=== PATIENT | female | born 1980 | race Caucasian/White ===

== ENCOUNTER 2019-07-22 19:07 | Inpatient (IN) ==
[2019-07-22] MEDS ORDERED: REGLAN PO PRN (21:06)
[2019-07-22] MEDS ORDERED: ZOFRAN IV PRN (21:06)
[2019-07-22] MEDS ORDERED: PEPCID PO PRN (21:06)
[2019-07-22] MEDS ORDERED: BRETHINE SUBQ PRN (21:06)
[2019-07-22] MEDS ORDERED: STADOL IV PRN ×3 (21:06)
[2019-07-22] MEDS ORDERED: PEPCID IV PRN (21:06)
[2019-07-22] MEDS ORDERED: KEFZOL 1 GM/D5W 1 GM/50 ML IVPB IV PRN (21:06)
[2019-07-22] MEDS ORDERED: SODIUM CHLORIDE 0.9% INJ SCH (21:30)
[2019-07-22] MEDS ORDERED: SODIUM CHLORIDE 0.9% INJ PRN (21:30)
[2019-07-22] MEDS: LR 1,000 ML IV ONE (21:45)
[2019-07-22] MEDS ORDERED: CYTOTEC VAG ONE (22:00)
[2019-07-22 22:46] LABS: BASO# 0.03 X1000 (0.0-0.2); BASO% 0.2 % (0.0-0.8); EOS# 0.22 X1000 (0.0-0.7); EOS% 1.7 % (0.0-10.0); HEMATOCRIT 34.5 % (37.0-47.0); HEMOGLOBIN 11.1 g/dL (12.0-16.0); IMM GRAN# 0.16 X1000 (0.0-0.04); IMM GRAN% 1.3 % (0.0-0.5); LYMPH# 2.61 X1000 (1.2-3.4); LYMPH% 20.6 % (20.5-51.1); MCH 25.7 PG (27-31); MCHC 32.2 g/dL (33-37); MCV 79.9 FL (81-99); MONO# 1.22 X1000 (0.11-0.59); MONO% 9.6 % (1.7-9.3); MPV 11.3 FL (7.4-10.4); NEUT# 8.46 X1000 (1.4-6.5); NEUT% 66.6 % (42.2-75.2); PLT 236 X1000 (130-400); RBC 4.32 XMIL (4.2-5.4); RDW 13.3 % (11.5-14.5)
[2019-07-22] MEDS: MUCINEX PO SCH (22:49)
[2019-07-22 23:14] LABS: URINE SOURCE VOIDED
[2019-07-22 23:22] LABS: BILIRUBIN URINE NEGATIVE (NEGATIVE); BLOOD URINE NEGATIVE (NEGATIVE); COLOR YELLOW; GLUCOSE URINE NEGATIVE (NEGATIVE); KETONE URINE NEGATIVE (NEGATIVE); LEUKOCYTES URINE NEGATIVE (NEGATIVE); NITRITE URINE NEGATIVE (NEGATIVE); PROTEIN URINE 50 mg/dL (NEGATIVE); SP GRAVITY URINE 1.019; TURBIDITY URINE HAZY (CLEAR); UROBILINOGEN URINE NORMAL (NORMAL)
[2019-07-22 23:31] LABS: UR AMPHETAMINES QUAL NONE DETECTED (NONE DETECT); UR BARBITUATES QUAL NONE DETECTED (NONE DETECT); UR BENZODIAZEPIN QUAL NONE DETECTED (NONE DETECT); UR CANNABINOIDS QUAL NONE DETECTED (NONE DETECT); UR COCAINE QUAL NONE DETECTED (NONE DETECT); UR METHADONE QUAL NONE DETECTED (NONE DETECT); UR OPIATES QUAL NONE DETECTED (NONE DETECT); UR OXYCODONE QUAL NONE DETECTED (NONE DETECT); UR PCP QUAL NONE DETECTED (NONE DETECT)
[2019-07-23] MEDS: CYTOTEC VAG SCH ×5 (02:36→18:00)
[2019-07-23] MEDS: AMBIEN PO PRN ×2 (02:39→21:27)
--- NOTE | 2019-07-23 06:08 | HISTORY AND PHYSICAL ---
ESTIMATED GESTATIONAL AGE: 37+ 1. HISTORY: This patient is a 39-year-old 1, para 0, at 37+ 1 week who presented for Cytotec ripening/induction. The patient's history is remarkable for asthma, chronic hypertension, and depression. This is an in vitro . She is also Rh negative and received RhoGAM during the at 28 weeks. Her labs were unremarkable. She is GBS negative. FAMILY HISTORY: Remarkable for grandmother with breast cancer. PAST SURGICAL HISTORY: Remarkable for wisdom teeth. ALLERGIES: She had no known drug allergies. MEDICATIONS: The patient is on asthma medications, and also takes Procardia XL 30 for her chronic hypertension. REVIEW OF SYSTEMS: Constitutional: Negative. Respiratory: Negative. Cardiovascular: Negative. GI: Negative. Pelvic: Her pelvic exam in the office was as per patient, closed and thick. PHYSICAL EXAMINATION: VITAL SIGNS: Stable. GENERAL: She was in no distress. RESPIRATORY: Nonlabored respirations. CARDIOVASCULAR: Within normal limits. ABDOMEN: Gravid. Within normal limits. Approximately 7-1/2 pounds height. PELVIC: Exam was deferred. NEUROLOGIC: She was cooperative. Appropriate mood and affect with normal judgment. She was alert and oriented x3. ASSESSMENT: Term gestation at 37+ 1 week with chronic hypertension for Cytotec ripening/induction. PLAN: Reviewed with the patient. She verbalized understanding, and all questions were answered. [facility]
[2019-07-23] MEDS ORDERED: PITOCIN 30 UNITS/NS 30 UNIT/500 ML IV.SOLN IV SCH (07:00)
[2019-07-23] MEDS ORDERED: XYLOCAINE-MPF 1% INJ PRN (07:17)
[2019-07-23] MEDS ORDERED: MINERAL OIL TOP PRN (07:17)
--- NOTE | 2019-07-23 07:31 | HISTORY AND PHYSICAL ---
HISTORY OF PRESENT ILLNESS: Mrs. Theodore is a 39-year-old G1, P0 at 37 weeks and 1 day based on 1st trimester ultrasound who presents to Labor and Delivery for scheduled induction of labor per Maternal Medicine recommendation. The patient was seen and evaluated at Maternal Medicine office today where pressures were elevated, and positive +2 protein noted in the urine. The patient has a history of chronic hypertension and induction of labor was recommended for chronic hypertension with superimposed preeclampsia without severe features. The patient reports good movement. Denies contractions, leakage of fluid, or vaginal bleeding. Patient also denies headache, visual changes, or epigastric pain. ALLERGIES: No known drug allergies. MEDICATIONS: Albuterol low-dose aspirin, budesonide-formoterol, nifedipine extended release 60 mg, Pepcid 20 mg, and vitamins. PAST MEDICAL HISTORY: Asthma, depression, and hypertension. PAST SURGICAL HISTORY: [place] teeth extraction. OBSTETRICAL HISTORY: G1, P0. Current is via in vitro fertilization. INTAKE CLINICIAN HISTORY: Denies STD exposure. SOCIAL HISTORY: Denies tobacco, alcohol, or drug use. FAMILY HISTORY: Noncontributory. PHYSICAL EXAMINATION: VITAL SIGNS: Temperature 98 degrees Fahrenheit, pulse rate 93, respiration rate 20, blood pressure 141/86, and O2 saturation is 100% on room air. Weight 214 pounds. Height 5 feet 2 inches tall. Body mass index 39.1 kg/m2. GENERAL: No acute distress. Alert, awake and oriented x3. CARDIOVASCULAR: Regular rate and rhythm. Positive S1, S2. RESPIRATORY: Clear to auscultation bilaterally. Negative rhonchi, rales, or wheezing. ABDOMEN: Gravid. Nontender to palpation. Soft. EXTREMITIES: +2 edema. Negative calf tenderness. Electronic monitoring category 1 tracing. LABORATORY: Blood type AB negative. Hepatitis B surface antigen nonreactive. RPR nonreactive. HIV antibody screen nonreactive. Drug screen negative. Hepatitis C antibody nonreactive. CURRENT LABORATORY: WBC's 12.7, hemoglobin 11.1, hematocrit 34.5, and platelets 236,000. RPR nonreactive. ASSESSMENT: Mrs. Theodore is a 39-year-old, G1, P0, at 37 weeks and 1 day who presents for scheduled induction of labor secondary to chronic hypertension with superimposed preeclampsia without severe features. PLAN: 1. Admit to Labor and Delivery. 2. Obtain routine labor labs with PIH labs. 3. Plan for induction with Cytotec 25 mcg per vagina q.4 hours. 4. GBS negative, prophylactic antibiotic not indicated. 5. Continuous electronic monitoring. 6. Patient counseled on risks, benefits, and alternatives to procedure. Risks, not limited to infection, bleeding, vaginal laceration, delivery dystocia, emergent use of kiwi vacuum for delivery, and emergent delivery. The patient understands risks, and agrees to said procedure. 7. Estimated weight 7.5 pounds. 8. Anticipate vaginal delivery. [facility]ac[facility]
[2019-07-23 08:14] LABS: BASO# 0.06 X1000 (0.0-0.2); BASO% 0.5 % (0.0-0.8); EOS# 0.32 X1000 (0.0-0.7); EOS% 2.8 % (0.0-10.0); HEMATOCRIT 31.3 % (37.0-47.0); IMM GRAN# 0.09 X1000 (0.0-0.04); IMM GRAN% 0.8 % (0.0-0.5); LYMPH# 2.69 X1000 (1.2-3.4); LYMPH% 23.6 % (20.5-51.1); MCHC 31.9 g/dL (33-37); MCV 81.3 FL (81-99); MONO# 1.13 X1000 (0.11-0.59); MONO% 9.9 % (1.7-9.3); MPV 11.1 FL (7.4-10.4); NEUT# 7.11 X1000 (1.4-6.5); NEUT% 62.4 % (42.2-75.2); PLT 216 X1000 (130-400); RBC 3.85 XMIL (4.2-5.4); RDW 13.3 % (11.5-14.5)
[2019-07-23] MEDS: ADALAT CC PO SCH (08:20)
[2019-07-23] MEDS ORDERED: PROCARDIA ER PO SCH (09:00)
[2019-07-23 09:10] LABS: AGAP 16; ALB/GLOB RATIO 1.1; ALKALINE PHOSPHATASE 162 U/L (32-104); BUN 7 mg/dL (8-22); CALCIUM 8.4 mg/dL (8.8-10.2); CHLORIDE 103 mmol/L (98-107); COSMO 272; CREATININE 0.6 mg/dL (0.5-0.9); ESTIMATED GFR > 60; GLUCOSE 74 mg/dL (70-104); GOT 34 U/L (10-30); GPT 44 U/L (10-36); POTASSIUM 3.8 mmol/L (3.5-5.1); SODIUM 138 mmol/L (136-145); TCO2 19 mmol/L (25-35); TOTAL BILIRUBIN 0.43 mg/dL (0.20-1.00); TOTAL PROTEIN 5.8 g/dL (6.3-8.3); URIC ACID 5.6 mg/dL (2.4-5.7)
[2019-07-23] MEDS ORDERED: MAGNESIUM SULFATE 4 GM/S.W.I. 4 GM/100 ML IVPB IV ONE (10:11)
[2019-07-23] MEDS ORDERED: LABETALOL IV ONE (10:13)
--- NOTE | 2019-07-23 10:25 | HISTORY AND PHYSICAL ---
HISTORY OF PRESENT ILLNESS: This patient is a 39-year-old, 1, para 0, who presents for Cytotec induction at 37 plus 1 week. She has chronic hypertension, asthma, depression, and this was an in vitro . She is Rh negative and received RhoGAM during the at 28 weeks. PAST SURGICAL HISTORY: Remarkable for wisdom teeth. FAMILY HISTORY: She had a grandmother with breast cancer. ALLERGIES: She had no known drug allergies. MEDICATIONS: She is on asthma medications as well as Procardia XL 30 for her blood pressure. LABORATORY DATA: Her GBS was negative. Her labs were also unremarkable. Review of systems: negative PHYSICAL EXAMINATION: VITAL SIGNS: The patient was admitted and her vital signs were stable. Her blood pressure ranged from 140s-130s/60s-80s. WDWN WF alert oriented times 3 CARDIOVASCULAR: Examination was negative. RESPIRATORY: Respiratory effort was normal. ABDOMEN: Benign with an estimated weight of approximately 7 pounds. PELVIC: Examination was deferred. ASSESSMENT: Primigravida at 37 plus 1 with chronic hypertension, for Cytotec induction. PLAN: As above. The patient verbalized understanding and all questions were answered. [facility]
[2019-07-23] MEDS: MAGNESIUM SULFATE 40 GM/S.W.I. 40 GM/1,000 ML IV.SOLN IV SCH (10:49)
[2019-07-23] MEDS ORDERED: CERVIDIL VAGINAL VAG ONE (12:30)
[2019-07-23] MEDS: LR 1,000 ML IV ONE (12:58)
--- NOTE | 2019-07-23 13:19 | OB/GYN PROGRESS NOTE ---
- Subjective PT seen and examined s/p cytotec PV x 3 doses. No cervical change noted. IOL for superimposed pre-eclampsia without severe features, however severe range BP noted requiring Labetalol 20mg IVP. PT started on Magnesium sulfate. Reports good FM, occasional contractions, denies LOF/VB/POTTER/scotomata/RUQ pain. OB Physical Exam Vital Signs - 8 hr 07/23/19 07:00 Temperature 97.3 F L Pulse Rate 93 H Respiratory Rate 16 Blood Pressure 169/87 O2 Sat by Pulse Oximetry 99 - CONSTITUTIONAL General Appearance: appears well, alert, no apparent distress - RESPIRATORY Respiratory: lungs clear - CARDIOVASCULAR Cardiovascular: regular rate, rhythm - GENITOURINARY Vaginal Exam: no cervical change noted Cervica Dilation: closed, external os 1 cm Cervical Effacement: 0% Station: -3 Heart Rate: 120 bpm, moderate variability, +accelerations, -decelerations - MUSCULOSKELETAL Extremity: no calf tenderness DTR: bicep (R): 1+, bicep (L): 1+ Active Medications Generic Name Dose Route Start Last Admin Trade Name Freq PRN Reason Stop Dose Admin Acetaminophen 650 mg 07/22/19 21:06 Tylenol PO Q4-6H PRN PRN Headache Butorphanol Tartrate 1 mg 07/22/19 21:06 Stadol IV Q2H PRN PRN Pain (1-4 on Pain Scale) Butorphanol Tartrate 2 mg 07/22/19 21:06 Stadol IV Q2H PRN PRN Pain (5-10 on Pain Scale) Butorphanol Tartrate 2 mg 07/22/19 21:06 Stadol IV PRN PRN Pain Famotidine 20 mg 07/22/19 21:06 Pepcid PO PRN PRN For c/s Famotidine 20 mg 07/22/19 21:06 Pepcid PO Q12H PRN PRN GI upset or indigestion Famotidine 20 mg 07/22/19 21:06 Pepcid IV Q12H PRN PRN GI upset or indigestion Guaifenesin 600 mg 07/22/19 22:30 07/22/19 22:49 Mucinex PO 600 mg Q12HR EUSEBIO Administration Cefazolin Sodium/Dextrose 1 gm in 50 mls @ 100 mls/hr 07/22/19 21:06 Kefzol 1 Gm/D5w IV ONCE PRN PRN section Oxytocin/Sodium Chloride 30 unit in 500 mls @ 0 mls/hr 07/23/19 07:00 Pitocin 30 Units/Ns IV .Q0M EUSEBIO As Directed Magnesium Sulfate 40 gm in 1,000 mls @ 50 mls/hr 07/23/19 10:15 07/23/19 10:49 Magnesium Sulfate 40 Gm/S.W.I. IV 50 mls/hr .Q20H EUSEBIO Administration Lactated Ringer's 1,000 mls @ 0 mls/hr 07/23/19 13:00 Lr IV .Q0M EUSEBIO As Directed Lidocaine HCl 30 ml 07/23/19 07:17 Xylocaine-Mpf 1% INJ PRN PRN vaginal repair Metoclopramide HCl 10 mg 07/22/19 21:06 Reglan PO PRN PRN For C/S Mineral Oil 30 ml 07/23/19 07:17 Mineral Oil TOP PRN PRN lubrication Misoprostol 25 microgm 07/23/19 02:00 07/23/19 06:55 Cytotec VAG 07/23/19 22:01 25 microgm Q4H EUSEBIO Administration Nifedipine 60 mg 07/23/19 09:00 07/23/19 08:20 Adalat Cc PO 60 mg DAILY EUSEBIO Administration Ondansetron HCl 4 mg 07/22/19 21:06 Zofran IV PRN PRN Nausea Sodium Chloride 5 - 10 ml 07/22/19 21:30 Sodium Chloride 0.9% INJ DIRECTED PRN PRN Terbutaline Sulfate 0.25 mg 07/22/19 21:06 Brethine SUBQ PRN PRN tachysystole/hypertonus Zolpidem Tartrate 10 mg 07/22/19 21:06 07/23/19 02:39 Ambien PO 10 mg HS PRN PRN Administration Sleep Laboratory Results - last 24 hr 07/22/19 07/22/19 07/22/19 19:32 19:32 21:45 WBC RBC Hgb Hct MCV MCH MCHC RDW Std Deviation Plt Count MPV Immature Gran % (Auto) Neut % (Auto) Lymph % (Auto) [place] % (Auto) Eos % (Auto) Baso % (Auto) Immature Gran # (Auto) Neut # (Auto) Lymph # (Auto) [place] # (Auto) Eos # (Auto) Baso # (Auto) Sodium Potassium Chloride Carbon Dioxide Anion Gap BUN Creatinine Estimated GFR/1.73 m2 BUN/Creatinine Ratio Glucose Calculated Osmolality Uric Acid Calcium Total Bilirubin AST ALT Alkaline Phosphatase Total Protein Albumin Globulin Albumin/Globulin Ratio Urine Source VOIDED Urine Color YELLOW Urine Turbidity HAZY Urine pH 6.0 Ur Specific [place] 1.019 Urine Protein 50 A Ur Glucose (Stick) NEGATIVE Ur Ketones (Stick) NEGATIVE Urine Blood NEGATIVE Urine Nitrite NEGATIVE Urine Bilirubin NEGATIVE Urobilinogen Dipstick NORMAL Urine Leukocytes NEGATIVE Urine Opiates Screen NONE DETECTED Ur Oxycodone Screen NONE DETECTED Ur Methadone, Qual NONE DETECTED Ur Barbiturates Screen NONE DETECTED Ur Phencyclidine Scrn NONE DETECTED Ur Amphetamines Screen NONE DETECTED U Benzodiazepines Scrn NONE DETECTED Urine Cocaine Screen NONE DETECTED U Cannabinoids Screen NONE DETECTED RPR NON-REACTIVE Blood Type Antibody Screen 07/22/19 07/23/19 07/23/19 21:45 07:55 07:55 WBC 12.70 H 11.40 H RBC 4.32 3.85 L Hgb 11.1 L 10.0 L Hct 34.5 L 31.3 L MCV 79.9 L 81.3 MCH 25.7 L 26.0 L MCHC 32.2 L 31.9 L RDW Std Deviation 13.3 13.3 Plt Count 236 216 MPV 11.3 H 11.1 H Immature Gran % (Auto) 1.3 H 0.8 H Neut % (Auto) 66.6 62.4 Lymph % (Auto) 20.6 23.6 [place] % (Auto) 9.6 H 9.9 H Eos % (Auto) 1.7 2.8 Baso % (Auto) 0.2 0.5 Immature Gran # (Auto) 0.16 H 0.09 H Neut # (Auto) 8.46 H 7.11 H Lymph # (Auto) 2.61 2.69 [place] # (Auto) 1.22 H 1.13 H Eos # (Auto) 0.22 0.32 Baso # (Auto) 0.03 0.06 Sodium 138 Potassium 3.8 Chloride 103 Carbon Dioxide 19 L Anion Gap 16 BUN 7 L Creatinine 0.6 Estimated GFR/1.73 m2 > 60 BUN/Creatinine Ratio 12 Glucose 74 Calculated Osmolality 272 Uric Acid 5.6 Calcium 8.4 L Total Bilirubin 0.43 AST 34 H ALT 44 H Alkaline Phosphatase 162 H Total Protein 5.8 L Albumin 3.0 L Globulin 2.8 Albumin/Globulin Ratio 1.1 Urine Source Urine Color Urine Turbidity Urine pH Ur Specific [place] Urine Protein Ur Glucose (Stick) Ur Ketones (Stick) Urine Blood Urine Nitrite Urine Bilirubin Urobilinogen Dipstick Urine Leukocytes Urine Opiates Screen Ur Oxycodone Screen Ur Methadone, Qual Ur Barbiturates Screen Ur Phencyclidine Scrn Ur Amphetamines Screen U Benzodiazepines Scrn Urine Cocaine Screen U Cannabinoids Screen RPR Blood Type Antibody Screen 07/23/19 07:55 WBC RBC Hgb Hct MCV MCH MCHC RDW Std Deviation Plt Count MPV Immature Gran % (Auto) Neut % (Auto) Lymph % (Auto) [place] % (Auto) Eos % (Auto) Baso % (Auto) Immature Gran # (Auto) Neut # (Auto) Lymph # (Auto) [place] # (Auto) Eos # (Auto) Baso # (Auto) Sodium Potassium Chloride Carbon Dioxide Anion Gap BUN Creatinine Estimated GFR/1.73 m2 BUN/Creatinine Ratio Glucose Calculated Osmolality Uric Acid Calcium Total Bilirubin AST ALT Alkaline Phosphatase Total Protein Albumin Globulin Albumin/Globulin Ratio Urine Source Urine Color Urine Turbidity Urine pH Ur Specific [place] Urine Protein Ur Glucose (Stick) Ur Ketones (Stick) Urine Blood Urine Nitrite Urine Bilirubin Urobilinogen Dipstick Urine Leukocytes Urine Opiates Screen Ur Oxycodone Screen Ur Methadone, Qual Ur Barbiturates Screen Ur Phencyclidine Scrn Ur Amphetamines Screen U Benzodiazepines Scrn Urine Cocaine Screen U Cannabinoids Screen RPR Blood Type AB NEGATIVE Antibody Screen NEGATIVE OB Assessment & Plan (1) Chronic hypertension affecting Status: Acute Plan: - (2) Chronic hypertension with superimposed pre-eclampsia Status: Acute Plan: 39 yo @ 37w2d with CODY with severe features -IOL: s/p cytotec 25 mcg PV q 4 hrs x 3 doses. Counseled on using different medication for induction process. Plan to start Cervadil PV x 12 hrs -CHTN with cody with severe feat: s/p Labetalol 20mg IVP. Continue Procardia 60mg daily. Start Magnesium sulfate 4 g loading, followed by 2 g/hr. Continue to monitor for si/sy of worsening pre-eclampsia. Informed pt of plan for Mag sulfate 24hr post delivery for ppx -Continue EFM/TOCO -Clear liq diet -talha insitu, monitor urine output. Inform provider with reduced UOP -anticipate VD, continue to monitor with active mgt
[2019-07-23] MEDS: MUCINEX PO SCH ×2 (13:40→21:27)
[2019-07-23] MEDS: TYLENOL PO PRN (17:07)
[2019-07-24] MEDS: LR 1,000 ML IV SCH ×2 (01:45→11:22)
[2019-07-24] MEDS: CYTOTEC VAG SCH (01:56)
[2019-07-24] MEDS: MAGNESIUM SULFATE 40 GM/S.W.I. 40 GM/1,000 ML IV.SOLN IV SCH (05:37)
[2019-07-24 05:51] LABS: BASO# 0.06 X1000 (0.0-0.2); BASO% 0.4 % (0.0-0.8); EOS# 0.22 X1000 (0.0-0.7); EOS% 1.6 % (0.0-10.0); HEMATOCRIT 31.8 % (37.0-47.0); HEMOGLOBIN 10.2 g/dL (12.0-16.0); IMM GRAN# 0.13 X1000 (0.0-0.04); IMM GRAN% 0.9 % (0.0-0.5); LYMPH# 2.05 X1000 (1.2-3.4); LYMPH% 14.5 % (20.5-51.1); MCH 25.8 PG (27-31); MCHC 32.1 g/dL (33-37); MCV 80.5 FL (81-99); MONO# 1.56 X1000 (0.11-0.59); MONO% 11.1 % (1.7-9.3); MPV 11.2 FL (7.4-10.4); NEUT# 10.08 X1000 (1.4-6.5); NEUT% 71.5 % (42.2-75.2); PLT 226 X1000 (130-400); RBC 3.95 XMIL (4.2-5.4); RDW 13.3 % (11.5-14.5)
--- NOTE | 2019-07-24 06:27 | OB/GYN PROGRESS NOTE ---
- Subjective Pt seen and examined. No cervical change s/p cytotec PV x 3 doses and cervidil PV. Pt reports good FM, occasional contractions, denies LOF/VB/POTTER/scotomata/RUQ pain. OB Physical Exam Vital Signs - 8 hr 07/24/19 02:01 Temperature 98.2 F Pulse Rate 98 H Respiratory Rate 18 Blood Pressure 139/80 O2 Sat by Pulse Oximetry 98 - CONSTITUTIONAL General Appearance: appears well, alert, no apparent distress - RESPIRATORY Respiratory: lungs clear - CARDIOVASCULAR Cardiovascular: regular rate, rhythm - GASTROINTESTINAL (ABDOMEN) Abdominal Exam: non tender, soft - GENITOURINARY Cervica Dilation: closed Cervical Effacement: 0% Station: -3 Heart Rate: Cat I - MUSCULOSKELETAL DTR: bicep (R): 1+, bicep (L): 1+ - PSYCHIATRIC Psych/Mental Status: normal mood/affect, oriented x 3 Active Medications Generic Name Dose Route Start Last Admin Trade Name Freq PRN Reason Stop Dose Admin Acetaminophen 650 mg 07/22/19 21:06 07/23/19 17:07 Tylenol PO 650 mg Q4-6H PRN PRN Administration Headache Butorphanol Tartrate 1 mg 07/22/19 21:06 Stadol IV Q2H PRN PRN Pain (1-4 on Pain Scale) Butorphanol Tartrate 2 mg 07/22/19 21:06 Stadol IV Q2H PRN PRN Pain (5-10 on Pain Scale) Butorphanol Tartrate 2 mg 07/22/19 21:06 Stadol IV PRN PRN Pain Famotidine 20 mg 07/22/19 21:06 Pepcid PO PRN PRN For c/s Famotidine 20 mg 07/22/19 21:06 Pepcid PO Q12H PRN PRN GI upset or indigestion Famotidine 20 mg 07/22/19 21:06 07/23/19 15:02 Pepcid IV 20 mg Q12H PRN PRN Administration GI upset or indigestion Guaifenesin 600 mg 07/22/19 22:30 07/23/19 21:27 Mucinex PO 600 mg Q12HR EUSEBIO Administration Cefazolin Sodium/Dextrose 1 gm in 50 mls @ 100 mls/hr 07/22/19 21:06 Kefzol 1 Gm/D5w IV ONCE PRN PRN section Oxytocin/Sodium Chloride 30 unit in 500 mls @ 0 mls/hr 07/23/19 07:00 Pitocin 30 Units/Ns IV .Q0M EUSEBIO As Directed Magnesium Sulfate 40 gm in 1,000 mls @ 50 mls/hr 07/23/19 10:15 07/24/19 05:37 Magnesium Sulfate 40 Gm/S.W.I. IV 50 mls/hr .Q20H EUSEBIO Administration Lactated Ringer's 1,000 mls @ 0 mls/hr 07/23/19 13:00 07/24/19 01:45 Lr IV 125 mls/hr .Q0M EUSEBIO Administration As Directed Lidocaine HCl 30 ml 07/23/19 07:17 Xylocaine-Mpf 1% INJ PRN PRN vaginal repair Metoclopramide HCl 10 mg 07/22/19 21:06 Reglan PO PRN PRN For C/S Mineral Oil 30 ml 07/23/19 07:17 Mineral Oil TOP PRN PRN lubrication Nifedipine 60 mg 07/23/19 09:00 07/23/19 08:20 Adalat Cc PO 60 mg DAILY EUSEBIO Administration Ondansetron HCl 4 mg 07/22/19 21:06 Zofran IV PRN PRN Nausea Sodium Chloride 5 - 10 ml 07/22/19 21:30 Sodium Chloride 0.9% INJ DIRECTED PRN PRN Terbutaline Sulfate 0.25 mg 07/22/19 21:06 Brethine SUBQ PRN PRN tachysystole/hypertonus Zolpidem Tartrate 10 mg 07/22/19 21:06 07/23/19 21:27 Ambien PO 10 mg HS PRN PRN Administration Sleep Laboratory Results - last 24 hr 07/23/19 07/23/19 07/23/19 07:55 07:55 07:55 WBC 11.40 H RBC 3.85 L Hgb 10.0 L Hct 31.3 L MCV 81.3 MCH 26.0 L MCHC 31.9 L RDW Std Deviation 13.3 Plt Count 216 MPV 11.1 H Immature Gran % (Auto) 0.8 H Neut % (Auto) 62.4 Lymph % (Auto) 23.6 [place] % (Auto) 9.9 H Eos % (Auto) 2.8 Baso % (Auto) 0.5 Immature Gran # (Auto) 0.09 H Neut # (Auto) 7.11 H Lymph # (Auto) 2.69 [place] # (Auto) 1.13 H Eos # (Auto) 0.32 Baso # (Auto) 0.06 Sodium 138 Potassium 3.8 Chloride 103 Carbon Dioxide 19 L Anion Gap 16 BUN 7 L Creatinine 0.6 Estimated GFR/1.73 m2 > 60 BUN/Creatinine Ratio 12 Glucose 74 Calculated Osmolality 272 Uric Acid 5.6 Calcium 8.4 L Total Bilirubin 0.43 AST 34 H ALT 44 H Alkaline Phosphatase 162 H Total Protein 5.8 L Albumin 3.0 L Globulin 2.8 Albumin/Globulin Ratio 1.1 Blood Type AB NEGATIVE Antibody Screen NEGATIVE 07/24/19 05:35 WBC 14.10 H RBC 3.95 L Hgb 10.2 L Hct 31.8 L MCV 80.5 L MCH 25.8 L MCHC 32.1 L RDW Std Deviation 13.3 Plt Count 226 MPV 11.2 H Immature Gran % (Auto) 0.9 H Neut % (Auto) 71.5 Lymph % (Auto) 14.5 L [place] % (Auto) 11.1 H Eos % (Auto) 1.6 Baso % (Auto) 0.4 Immature Gran # (Auto) 0.13 H Neut # (Auto) 10.08 H Lymph # (Auto) 2.05 [place] # (Auto) 1.56 H Eos # (Auto) 0.22 Baso # (Auto) 0.06 Sodium Potassium Chloride Carbon Dioxide Anion Gap BUN Creatinine Estimated GFR/1.73 m2 BUN/Creatinine Ratio Glucose Calculated Osmolality Uric Acid Calcium Total Bilirubin AST ALT Alkaline Phosphatase Total Protein Albumin Globulin Albumin/Globulin Ratio Blood Type Antibody Screen OB Assessment & Plan (1) Chronic hypertension affecting Status: Acute Plan: - (2) Chronic hypertension with superimposed pre-eclampsia Status: Acute Plan: 39yo at 37w2d IVF presents for scheduled IOL secondary to CHRYSTAL now with severe feat. -failed IOL: s/p cytotec PV x 3 and cervidil. discussed plan for primary CD. Reviewed risks and benefits. Risks not limited to infection, bleeding, injury to bowel, bladder, ureter or baby -CHRYSTAL: con't mag sulfate 2g/hr. Monitor BP closely. Con't daily procardia 60mg. s/p Labetalol 20mg IVP x 1. Will conitne mag sulfate 24 hr post delivery -h/o depression: will monitor closely for pp depression -Rh neg: s/p Rhogam at 28 weeks. Rhogam workup s/p delivery -Con't EFM -Plan for Primary LTCD
[2019-07-24 07:09] LABS: AGAP 13; ALKALINE PHOSPHATASE 209 U/L (32-104); BUN 5 mg/dL (8-22); CALCIUM 7.3 mg/dL (8.8-10.2); CHLORIDE 103 mmol/L (98-107); COSMO 271; CREATININE 0.6 mg/dL (0.5-0.9); ESTIMATED GFR > 60; GLUCOSE 89 mg/dL (70-104); GOT 38 U/L (10-30); GPT 55 U/L (10-36); POTASSIUM 3.9 mmol/L (3.5-5.1); SODIUM 137 mmol/L (136-145); TCO2 21 mmol/L (25-35); TOTAL BILIRUBIN 0.55 mg/dL (0.20-1.00); TOTAL PROTEIN 5.9 g/dL (6.3-8.3)
[2019-07-24 07:28] LABS: MAGNESIUM 6.7 mg/dL (1.5-2.7)
[2019-07-24] MEDS: TYLENOL PO PRN (07:28)
[2019-07-24] MEDS ORDERED: KEFZOL 2 GM/D5W 2 GM/50 ML IVPB IV ONE (07:57)
[2019-07-24] MEDS: ADALAT CC PO SCH (08:56)
[2019-07-24] MEDS: MUCINEX PO SCH (09:43)
[2019-07-24] MEDS ORDERED: PEPCID PO ONE (11:00)
[2019-07-24] MEDS ORDERED: BICITRA PO ONE (11:00)
[2019-07-24] MEDS ORDERED: REGLAN PO ONE (11:00)
[2019-07-24] MEDS: PEPCID PO PRN (11:03)
[2019-07-24] MEDS ORDERED: PITOCIN ONE (11:30)
[2019-07-24] MEDS ORDERED: EPHEDRINE ONE (11:31)
[2019-07-24] MEDS ORDERED: ZOFRAN ONE (11:31)
[2019-07-24] MEDS ORDERED: SODIUM CHLORIDE 0.9% 20 ML ONE (11:31)
[2019-07-24] MEDS ORDERED: NEO-SYNEPHRINE ONE (11:31)
[2019-07-24] MEDS ORDERED: DURAMORPH ONE (11:46)
[2019-07-24] MEDS ORDERED: TORADOL ONE (12:37)
[2019-07-24] MEDS ORDERED: HYDROXYZINE IM PRN (12:58)
[2019-07-24] MEDS ORDERED: M-M-R II VACCINE SUBQ ONE (12:58)
[2019-07-24] MEDS ORDERED: DEMEROL PO PRN (12:58)
[2019-07-24] MEDS ORDERED: DEMEROL IM PRN (12:58)
[2019-07-24] MEDS ORDERED: MYLICON PO PRN (12:58)
[2019-07-24] MEDS ORDERED: AMBIEN PO PRN (12:58)
[2019-07-24] MEDS ORDERED: PITOCIN 20 UNITS/NS 20 UNITS/1,000 ML IV.SOLN IV ONE (12:58)
[2019-07-24] MEDS ORDERED: MOTRIN PO PRN (12:58)
[2019-07-24] MEDS ORDERED: DULCOLAX PR PRN (12:58)
[2019-07-24] MEDS ORDERED: ATARAX PO PRN (12:58)
[2019-07-24] MEDS ORDERED: PITOCIN IM PRN (12:58)
[2019-07-24] MEDS ORDERED: BOOSTRIX VACCINE IM ONE (12:58)
[2019-07-24] MEDS ORDERED: PHENERGAN IM PRN (12:58)
[2019-07-24] MEDS ORDERED: PITOCIN 10 UNITS/NS 1,000 ML IV SCH (13:00)
[2019-07-24] MEDS ORDERED: VENTOLIN HFA INH PRN (13:03)
[2019-07-24] MEDS ORDERED: ZOFRAN IV PRN ×2 (13:30)
[2019-07-24] MEDS ORDERED: ZOFRAN ODT PO PRN (13:30)
[2019-07-24] MEDS ORDERED: NARCAN INJ PRN (13:30)
[2019-07-24] MEDS ORDERED: BENADRYL IV PRN (13:30)
[2019-07-24] MEDS: TORADOL IV SCH ×2 (13:50→18:07)
[2019-07-24] MEDS: MYLICON PO SCH ×3 (13:51→20:13)
[2019-07-24] MEDS: SYMBICORT 80/4.5 MICROGM INHALER INH SCH (20:06)
[2019-07-24] MEDS: PERICOLACE PO SCH (20:13)
[2019-07-25] MEDS: MUCINEX PO SCH ×3 (00:06→20:43)
[2019-07-25] MEDS: TORADOL IV SCH (00:12)
[2019-07-25] MEDS: MAGNESIUM SULFATE 40 GM/S.W.I. 40 GM/1,000 ML IV.SOLN IV SCH (02:53)
[2019-07-25 04:44] LABS: BASO# 0.05 X1000 (0.0-0.2); BASO% 0.3 % (0.0-0.8); EOS# 0.07 X1000 (0.0-0.7); EOS% 0.4 % (0.0-10.0); HEMOGLOBIN 6.2 g/dL (12.0-16.0); IMM GRAN# 0.08 X1000 (0.0-0.04); IMM GRAN% 0.4 % (0.0-0.5); LYMPH# 1.99 X1000 (1.2-3.4); LYMPH% 10.6 % (20.5-51.1); MCH 25.4 PG (27-31); MONO# 1.73 X1000 (0.11-0.59); MONO% 9.2 % (1.7-9.3); MPV 10.9 FL (7.4-10.4); NEUT% 79.1 % (42.2-75.2); PLT 212 X1000 (130-400); RBC 2.44 XMIL (4.2-5.4); RDW 13.5 % (11.5-14.5); WBC 18.82 X1000 (4.8-10.8)
[2019-07-25 04:57] LABS: AGAP 13; ALBUMIN 2.4 g/dL (3.5-5.0); ALKALINE PHOSPHATASE 144 U/L (32-104); BUN 7 mg/dL (8-22); CHLORIDE 95 mmol/L (98-107); COSMO 258; CREATININE 0.7 mg/dL (0.5-0.9); ESTIMATED GFR > 60; GLUCOSE 115 mg/dL (70-104); GOT 22 U/L (10-30); GPT 36 U/L (10-36); POTASSIUM 4.2 mmol/L (3.5-5.1); SODIUM 129 mmol/L (136-145); TCO2 21 mmol/L (25-35); TOTAL BILIRUBIN 0.49 mg/dL (0.20-1.00); TOTAL PROTEIN 4.8 g/dL (6.3-8.3)
[2019-07-25 04:58] LABS: CALCIUM 6.3 mg/dL (8.8-10.2)
[2019-07-25] MEDS ORDERED: MAGNESIUM SULFATE 40 GM/S.W.I. 40 GM/1,000 ML IV.SOLN IV SCH (06:45)
[2019-07-25] MEDS ORDERED: BENADRYL IV ONE (06:46)
[2019-07-25] MEDS: PERCOCET-10 PO PRN ×4 (07:32→19:38)
--- NOTE | 2019-07-25 07:45 | OB/GYN PROGRESS NOTE ---
- Subjective Pt is a POD #1 s/p primary CD for failed IOL with chtn complicated by pre- eclampsia with severe features. 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 Good urine output noted and urine now clearing. Pt reports feeling tired and weak. Significant blood loss noted via Hgb drop and plan to transfuse 2 units of pRBCs. Denies POTTER/scotomata/RUQ pain/SOB/CP. Pt tolerating clears and denies n/v. OB Physical Exam Vital Signs - 8 hr 07/25/19 00:04 07/25/19 03:45 07/25/19 07:13 Temperature 97.3 F L 98.2 F 98.3 F Pulse Rate 89 98 H 101 H Respiratory Rate 18 18 20 Blood Pressure 138/65 144/78 148/82 O2 Sat by Pulse Oximetry 98 98 99 - CONSTITUTIONAL General Appearance: appears well, alert, no apparent distress - RESPIRATORY Respiratory: lungs clear - CARDIOVASCULAR Cardiovascular: regular rate, rhythm - GASTROINTESTINAL (ABDOMEN) Abdominal Exam: soft (appropriately tender, FF at umbilicus) - MUSCULOSKELETAL Extremity: no calf tenderness DTR: bicep (R): 1+, bicep (L): 1+ Active Medications Generic Name Dose Route Start Last Admin Trade Name Freq PRN Reason Stop Dose Admin Acetaminophen 650 mg 07/22/19 21:06 07/24/19 07:28 Tylenol PO 650 mg Q4-6H PRN PRN Administration Headache Albuterol Sulfate 1 puff 07/24/19 13:03 Ventolin Hfa INH Q6H PRN PRN Shortness Of Breath Bisacodyl 10 mg 07/24/19 12:58 Dulcolax [place] PRN PRN gas unrelieved by Mylicon Budesonide/Formoterol Fumarate 2 puff 07/24/19 19:30 07/24/19 20:06 Symbicort 80/4.5 Microgm Inhaler INH 2 puff RTBID EUSEBIO Administration Butorphanol Tartrate 1 mg 07/22/19 21:06 Stadol IV Q2H PRN PRN Pain (1-4 on Pain Scale) Butorphanol Tartrate 2 mg 07/22/19 21:06 Stadol IV Q2H PRN PRN Pain (5-10 on Pain Scale) Butorphanol Tartrate 2 mg 07/22/19 21:06 Stadol IV PRN PRN Pain Diphenhydramine HCl 12.5 mg 07/24/19 13:30 Benadryl IV 07/25/19 13:29 Q6H PRN PRN ITCHING IF ZOFRAN INEFFECTIVE Famotidine 20 mg 07/22/19 21:06 07/24/19 11:03 Pepcid PO 20 mg PRN PRN Administration For c/s Famotidine 20 mg 07/22/19 21:06 Pepcid PO Q12H PRN PRN GI upset or indigestion Famotidine 20 mg 07/22/19 21:06 07/23/19 15:02 Pepcid IV 20 mg Q12H PRN PRN Administration GI upset or indigestion Guaifenesin 600 mg 07/22/19 22:30 07/25/19 00:06 Mucinex PO Not Given Q12HR EUSEBIO Hydroxyzine HCl 50 mg 07/24/19 12:58 Atarax PO Q3-4H PRN PRN Nausea Hydroxyzine HCl 50 mg 07/24/19 12:58 Hydroxyzine IM Q3-4H PRN PRN Nausea Cefazolin Sodium/Dextrose 1 gm in 50 mls @ 100 mls/hr 07/22/19 21:06 Kefzol 1 Gm/D5w IV ONCE PRN PRN section Oxytocin/Sodium Chloride 30 unit in 500 mls @ 0 mls/hr 07/23/19 07:00 Pitocin 30 Units/Ns IV .Q0M EUSEBIO As Directed Lactated Ringer's 1,000 mls @ 0 mls/hr 07/23/19 13:00 07/24/19 11:22 Lr IV 999 mls/hr .Q0M EUSEBIO Administration As Directed Lactated Ringer's 1,000 mls @ 125 mls/hr 07/25/19 12:59 Lr IV .Q8H EUSEBIO Magnesium Sulfate 40 gm in 1,000 mls @ 25 mls/hr 07/25/19 06:45 Magnesium Sulfate 40 Gm/S.W.I. IV .Q24H EUSEBIO Ibuprofen 800 mg 07/24/19 12:58 Motrin PO Q8H PRN PRN Pain Lidocaine HCl 30 ml 07/23/19 07:17 Xylocaine-Mpf 1% INJ PRN PRN vaginal repair Meperidine HCl 50 mg 07/24/19 12:58 Demerol IM Q3H PRN PRN Pain Meperidine HCl 50 mg 07/24/19 12:58 Demerol PO Q4H PRN PRN Pain (1-6 on Pain Scale) Metoclopramide HCl 10 mg 07/22/19 21:06 07/24/19 11:03 Reglan PO 10 mg PRN PRN Administration For C/S Mineral Oil 30 ml 07/23/19 07:17 Mineral Oil TOP PRN PRN lubrication Naloxone HCl 0.4 mg 07/24/19 13:30 Narcan INJ 07/25/19 13:29 DIRECTED PRN PRN Nifedipine 60 mg 07/25/19 09:00 Adalat Cc PO DAILY EUSEBIO Ondansetron HCl 4 mg 07/22/19 21:06 Zofran IV PRN PRN Nausea Ondansetron HCl 4 mg 07/24/19 13:30 Zofran Odt PO 07/25/19 13:29 DIRECTED PRN PRN Ondansetron HCl 4 mg 07/24/19 13:30 07/24/19 15:41 Zofran IV 07/25/19 13:29 4 mg DIRECTED PRN PRN Administration Ondansetron HCl 4 mg 07/24/19 13:30 Zofran IV 07/25/19 13:29 Q4-6H PRN PRN Itching Oxycodone/Acetaminophen 1 each 07/24/19 12:58 07/25/19 07:32 Percocet-10 PO 1 each Q3-4H PRN PRN Administration Pain (7-10 on Pain Scale) Oxytocin 20 unit 07/24/19 12:58 Pitocin IM PRN PRN Severe bleeding Multivit/Folic Acid/Iron 1 each 07/25/19 09:00 Precare PO DAILY EUSEBIO Promethazine HCl 25 mg 07/24/19 12:58 Phenergan IM Q3H PRN PRN Pain Senna/Docusate Sodium 1 each 07/24/19 21:00 07/24/19 20:13 Pericolace PO 1 each QHS EUSEBIO Administration Simethicone 80 mg 07/24/19 13:00 07/24/19 20:13 Mylicon PO 80 mg PC + HS EUSEBIO Administration Simethicone 80 mg 07/24/19 12:58 Mylicon PO PRN PRN GAS Sodium Chloride 5 - 10 ml 07/22/19 21:30 Sodium Chloride 0.9% INJ DIRECTED PRN PRN Terbutaline Sulfate 0.25 mg 07/22/19 21:06 Brethine SUBQ PRN PRN tachysystole/hypertonus Zolpidem Tartrate 10 mg 07/24/19 12:58 Ambien PO HS PRN PRN Sleep Laboratory Results - last 24 hr 07/23/19 07/25/19 07/25/19 07:55 04:27 04:27 WBC 18.82 H RBC 2.44 L Hgb 6.2 L D Hct 20.0 L D MCV 82.0 MCH 25.4 L MCHC 31.0 L RDW Std Deviation 13.5 Plt Count 212 MPV 10.9 H Immature Gran % (Auto) 0.4 Neut % (Auto) 79.1 H Lymph % (Auto) 10.6 L [place] % (Auto) 9.2 Eos % (Auto) 0.4 Baso % (Auto) 0.3 Immature Gran # (Auto) 0.08 H Neut # (Auto) 14.90 H Lymph # (Auto) 1.99 [place] # (Auto) 1.73 H Eos # (Auto) 0.07 Baso # (Auto) 0.05 Sodium Potassium Chloride Carbon Dioxide Anion Gap BUN Creatinine Estimated GFR/1.73 m2 BUN/Creatinine Ratio Glucose Calculated Osmolality Calcium Magnesium Total Bilirubin AST ALT Alkaline Phosphatase Total Protein Albumin Globulin Albumin/Globulin Ratio Blood Type AB NEGATIVE ABO/Rh AB NEGATIVE Weak D (Du) WEAK D NEGATIVE Antibody Screen NEGATIVE RhIG Candidate? YES Crossmatch See Detail 07/25/19 07/25/19 04:27 05:07 WBC RBC Hgb Hct MCV MCH MCHC RDW Std Deviation Plt Count MPV Immature Gran % (Auto) Neut % (Auto) Lymph % (Auto) [place] % (Auto) Eos % (Auto) Baso % (Auto) Immature Gran # (Auto) Neut # (Auto) Lymph # (Auto) [place] # (Auto) Eos # (Auto) Baso # (Auto) Sodium 129 L Potassium 4.2 Chloride 95 L Carbon Dioxide 21 L Anion Gap 13 BUN 7 L Creatinine 0.7 Estimated GFR/1.73 m2 > 60 BUN/Creatinine Ratio 10 Glucose 115 H Calculated Osmolality 258 Calcium 6.3 L* Magnesium 7.9 H Total Bilirubin 0.49 AST 22 ALT 36 Alkaline Phosphatase 144 H Total Protein 4.8 L Albumin 2.4 L Globulin 2.4 Albumin/Globulin Ratio 1.0 Blood Type ABO/Rh Weak D (Du) Antibody Screen RhIG Candidate? Crossmatch OB Assessment & Plan (1) Chronic hypertension affecting Status: Acute Plan: - (2) Chronic hypertension with superimposed pre-eclampsia Status: Acute Plan: - (3) delivery delivered Status: Acute Plan: 39yo POD#1 s/p primary CD with CHTN and HCRYSTAL w/ severe features -Anemia noted, will transfuse 2 units of pRBC -Low urine output overnight. s/p 200mL IV bolus, output improved and urine clearing -Pain well controlled on IV toradol, however will d/c Toradol and stated PO pain meds with Percocet and PO Ibuprofen -BP well controlled on Procardia 60mg. Will resume Procardia. Pt received 1 IVP of Labetalol 20mg during intrapartum period. Will d/c Mag sulfate 24 hrs post delivery. Mag sulfate reduced to 1g/hr secondary to reduced urine output and decreased DTR -Clear lig diet -Con't routine PP care
[2019-07-25] MEDS: SYMBICORT 80/4.5 MICROGM INHALER INH SCH ×3 (08:00→23:23)
[2019-07-25] MEDS: ADALAT CC PO SCH (08:58)
[2019-07-25] MEDS: MYLICON PO SCH ×4 (08:59→20:42)
[2019-07-25] MEDS: PRECARE PO SCH (08:59)
[2019-07-25] MEDS ORDERED: NS 500 ML IV SCH (09:00)
[2019-07-25] MEDS: TYLENOL PO PRN (10:22)
[2019-07-25] MEDS ORDERED: LR 1,000 ML IV SCH (12:59)
[2019-07-25 17:34] LABS: BASO# 0.05 X1000 (0.0-0.2); BASO% 0.3 % (0.0-0.8); EOS% 1.1 % (0.0-10.0); HEMOGLOBIN 9.1 g/dL (12.0-16.0); IMM GRAN# 0.12 X1000 (0.0-0.04); IMM GRAN% 0.7 % (0.0-0.5); LYMPH# 2.57 X1000 (1.2-3.4); LYMPH% 14.1 % (20.5-51.1); MCH 26.7 PG (27-31); MCHC 32.5 g/dL (33-37); MCV 82.1 FL (81-99); MONO# 1.45 X1000 (0.11-0.59); MPV 10.5 FL (7.4-10.4); NEUT# 13.78 X1000 (1.4-6.5); NEUT% 75.8 % (42.2-75.2); PLT 236 X1000 (130-400); RBC 3.41 XMIL (4.2-5.4); RDW 14.1 % (11.5-14.5); WBC 18.17 X1000 (4.8-10.8)
[2019-07-25] MEDS: PERICOLACE PO SCH (20:42)
[2019-07-26] MEDS: PERCOCET-10 PO PRN (00:01)
[2019-07-26] MEDS: MOTRIN PO SCH ×3 (00:04→17:02)
[2019-07-26] MEDS: PERCOCET-5 PO PRN ×3 (05:52→17:09)
--- NOTE | 2019-07-26 07:28 | OPERATIVE NOTE ---
PROCEDURE DATE: 07/24/2019 SURGEON: Luke Alvarado DO. DIRECTOR OF RELIGIOUS ACTIVITIES: Tammy Glaser DO. PREOPERATIVE DIAGNOSES: 1. Intrauterine at 37 weeks and 3 days. 2. Chronic hypertension with superimposed preeclampsia and severe features. 3. Failed induction of labor. POSTOPERATIVE DIAGNOSES: 1. Intrauterine at 37 weeks and 3 days. 2. Chronic hypertension with superimposed preeclampsia and severe features. 3. Failed induction of labor. PROCEDURE: Primary low transverse section. ANESTHESIA: Spinal. ESTIMATED BLOOD LOSS: 600 mL. FINDINGS: Female weighing 6 pounds and 6 ounces with Apgars of 8 and 9 at 1 and 5 minutes respectively. Normal bilateral tubes and ovaries. OPERATION: The patient was taken to the operating room where a time-out was performed to confirm correct patient and correct procedure. Spinal anesthesia was adequately established and prophylactic intravenous antibiotics were administered. The patient was then placed in a dorsal supine position with a left tilt of the hips. The patient was then prepped and draped in usual sterile fashion for a Pfannenstiel skin incision. An incision was made in the skin with a surgical scalpel and sharp dissection was carried out over subsequent layers of tissue including the fascia followed by Bovie electrocautery for hemostasis. The fascia was incised at the midline and fascial incision was extended bilaterally using the curved Smith scissors. The inferior edge of the fascial incision was grasped with Kahlil clamps, tented up and the underlying rectus muscle was dissected off bluntly using the Bovie electrocautery. Attention was then turned to the superior edge which was grasped with Kahlil clamps, tented up and the underlying rectus muscles were dissected off bluntly using the Bovie electrocautery. The rectus muscle were then divided at the midline and the peritoneum was identified and bluntly entered at its superior margin, taking care to avoid the bladder. The rectus muscle was then divided at the midline and the peritoneum was identified and bluntly entered at its superior margin, taking care to avoid the bladder. The peritoneal incision was extended superiorly and inferiorly using the Bovie electrocautery with good visualization of the bladder. The bladder blade was inserted and the vesicouterine peritoneum was identified, grasped with smooth pickups and cut laterally to both sides using the Metzenbaum scissors. A bladder flap was then created using blunt dissection. The bladder blade was reinserted, and a transverse incision was made in the lower uterine segment using the scalpel. The uterine incision was extended bilaterally using blunt dissection. The amniotic sac was entered and the amniotic fluid was noted to be clear. The surgeon's hand was placed in the uterine cavity. The head was identified and elevated into the abdomen, delivered through the uterine incision with the assistance of fundal pressure. The was examined for nuchal cord. No nuchal cord was identified. The infant was then delivered with traction and the assistance of fundal pressure. The 's oral and nasal passages were bulb suctioned. On delivery, the cord was clamped and cut. The infant was then passed off the table to the waiting retrimmer staff for further care. Cord segment and cord blood were obtained for analysis and routine blood testing. The placenta was delivered via manual extraction intact with a three- vessel cord. Oxytocin was administered by IV infusion to enhance uterine contraction. The uterus was exteriorized and cleared of all clots and remaining products of conception. Uterine incision was reapproximated using 0 Monocryl in a running locked fashion. A 2nd stitch was used at non- hemostatic areas in a [id number] fashion. Good hemostasis was confirmed. The uterus was replaced into the abdomen and the pericolic colic gutters were cleared of all clots. The fascia was reapproximated using 0 Vicryl in a running nonlocked fashion. The subcutaneous fat was reapproximated using 2-0 plain gut in a running nonlocking fashion. The skin was reapproximated using 4-0 Monocryl on a Neel stitch insert in a running subcuticular fashion. All needle, sponge, and instrument counts were noted to be correct x2 at the end of the procedure. The patient tolerated procedure well and was transferred to the recovery room in stable condition.
[2019-07-26] MEDS: ADALAT CC PO SCH (08:16)
[2019-07-26] MEDS: PRECARE PO SCH (08:16)
[2019-07-26] MEDS: MYLICON PO SCH ×4 (08:17→20:26)
[2019-07-26] MEDS: SYMBICORT 80/4.5 MICROGM INHALER INH SCH (08:57)
--- NOTE | 2019-07-26 08:58 | OB/GYN PROGRESS NOTE ---
- Subjective POD #2 primary c.section for chronic HTN with Pre-eclampsia. Patient is without complaints. Abd: soft and nontender. Fundus is firm and nontender. Incision: Dry and intact. Lower ext: no calf tenderness, 3+ edema. A/P: Stable POD 2. B/P improving on Procardia 60XL Pt ron PO Possible discharge home tomorrow. OB Physical Exam Vital Signs - 8 hr 07/26/19 04:00 07/26/19 07:15 Temperature 96.7 F L 98.8 F Pulse Rate 89 81 Respiratory Rate 16 20 Blood Pressure 133/72 133/65 O2 Sat by Pulse Oximetry 97 97 - CONSTITUTIONAL General Appearance: appears well, alert, no apparent distress - GASTROINTESTINAL (ABDOMEN) Abdominal Exam: non tender, soft - GENITOURINARY Female Genitalia/Pelvic Exam: deferred - MUSCULOSKELETAL Extremity: no calf tenderness Active Medications Generic Name Dose Route Start Last Admin Trade Name Freq PRN Reason Stop Dose Admin Acetaminophen 650 mg 07/22/19 21:06 07/25/19 10:22 Tylenol PO 650 mg Q4-6H PRN PRN Administration Headache Albuterol Sulfate 1 puff 07/24/19 13:03 Ventolin Hfa INH Q6H PRN PRN Shortness Of Breath Bisacodyl 10 mg 07/24/19 12:58 Dulcolax [place] PRN PRN gas unrelieved by Mylicon Budesonide/Formoterol Fumarate 2 puff 07/24/19 19:30 07/25/19 23:23 Symbicort 80/4.5 Microgm Inhaler INH Not Given RTBID EUSEBIO Famotidine 20 mg 07/22/19 21:06 07/24/19 11:03 Pepcid PO 20 mg PRN PRN Administration For c/s Famotidine 20 mg 07/22/19 21:06 Pepcid PO Q12H PRN PRN GI upset or indigestion Guaifenesin 600 mg 07/22/19 22:30 07/25/19 20:43 Mucinex PO 600 mg Q12HR EUSEBIO Administration Hydroxyzine HCl 50 mg 07/24/19 12:58 Atarax PO Q3-4H PRN PRN Nausea Hydroxyzine HCl 50 mg 07/24/19 12:58 Hydroxyzine IM Q3-4H PRN PRN Nausea Oxytocin/Sodium Chloride 30 unit in 500 mls @ 0 mls/hr 07/23/19 07:00 Pitocin 30 Units/Ns IV .Q0M EUSEBIO As Directed Lactated Ringer's 1,000 mls @ 0 mls/hr 07/23/19 13:00 07/24/19 11:22 Lr IV 999 mls/hr .Q0M EUSEBIO Administration As Directed Lactated Ringer's 1,000 mls @ 125 mls/hr 07/25/19 12:59 07/26/19 01:06 Lr IV Not Given .Q8H EUSEBIO Magnesium Sulfate 40 gm in 1,000 mls @ 25 mls/hr 07/25/19 06:45 Magnesium Sulfate 40 Gm/S.W.I. IV .Q24H EUSEBIO Sodium Chloride 500 mls @ 0 mls/hr 07/25/19 09:00 07/25/19 09:10 Ns IV 50 mls/hr .Q0M EUSEBIO Administration As Directed Ibuprofen 800 mg 07/26/19 00:00 07/26/19 08:16 Motrin PO 800 mg Q8H EUSEBIO Administration Meperidine HCl 50 mg 07/24/19 12:58 Demerol IM Q3H PRN PRN Pain Meperidine HCl 50 mg 07/24/19 12:58 Demerol PO Q4H PRN PRN Pain (1-6 on Pain Scale) Metoclopramide HCl 10 mg 07/22/19 21:06 07/24/19 11:03 Reglan PO 10 mg PRN PRN Administration For C/S Mineral Oil 30 ml 07/23/19 07:17 Mineral Oil TOP PRN PRN lubrication Nifedipine 60 mg 07/25/19 09:00 07/26/19 08:16 Adalat Cc PO 60 mg DAILY EUSEBIO Administration Ondansetron HCl 4 mg 07/22/19 21:06 Zofran IV PRN PRN Nausea Oxycodone/Acetaminophen 1 each 07/24/19 12:58 07/26/19 00:01 Percocet-10 PO 1 each Q3-4H PRN PRN Administration Pain (7-10 on Pain Scale) Oxycodone/Acetaminophen 1 each 07/26/19 05:42 07/26/19 05:52 Percocet-5 PO 1 each Q4H PRN PRN Administration Pain Oxytocin 20 unit 07/24/19 12:58 Pitocin IM PRN PRN Severe bleeding Multivit/Folic Acid/Iron 1 each 07/25/19 09:00 07/26/19 08:16 Precare PO 1 each DAILY EUSEBIO Administration Promethazine HCl 25 mg 07/24/19 12:58 Phenergan IM Q3H PRN PRN Pain Senna/Docusate Sodium 1 each 07/24/19 21:00 07/25/19 20:42 Pericolace PO 1 each QHS EUSEBIO Administration Silver Sulfadiazine 0 gm 07/26/19 09:00 Ssd Cream TOP BID EUSEBIO Simethicone 80 mg 07/24/19 13:00 07/26/19 08:17 Mylicon PO 80 mg PC + HS EUSEBIO Administration Simethicone 80 mg 07/24/19 12:58 07/25/19 16:02 Mylicon PO 80 mg PRN PRN Administration GAS Terbutaline Sulfate 0.25 mg 07/22/19 21:06 Brethine SUBQ PRN PRN tachysystole/hypertonus Zolpidem Tartrate 10 mg 07/24/19 12:58 Ambien PO HS PRN PRN Sleep Laboratory Results - last 24 hr 07/23/19 07/25/19 07:55 17:20 WBC 18.17 H RBC 3.41 L Hgb 9.1 L D Hct 28.0 L D MCV 82.1 MCH 26.7 L MCHC 32.5 L RDW Std Deviation 14.1 Plt Count 236 MPV 10.5 H Immature Gran % (Auto) 0.7 H Neut % (Auto) 75.8 H Lymph % (Auto) 14.1 L [place] % (Auto) 8.0 Eos % (Auto) 1.1 Baso % (Auto) 0.3 Immature Gran # (Auto) 0.12 H Neut # (Auto) 13.78 H Lymph # (Auto) 2.57 [place] # (Auto) 1.45 H Eos # (Auto) 0.20 Baso # (Auto) 0.05 Blood Type AB NEGATIVE Antibody Screen NEGATIVE Crossmatch See Detail
[2019-07-26] MEDS: SSD CREAM TOP SCH ×2 (14:11→21:00)
[2019-07-26] MEDS: MUCINEX PO SCH ×2 (14:19→20:25)
[2019-07-26] MEDS: PERICOLACE PO SCH (20:25)
[2019-07-27] MEDS: SYMBICORT 80/4.5 MICROGM INHALER INH SCH ×3 (01:14→21:34)
[2019-07-27] MEDS: MOTRIN PO SCH ×3 (01:24→18:10)
[2019-07-27] MEDS: PERCOCET-5 PO PRN ×4 (02:07→22:39)
--- NOTE | 2019-07-27 06:02 | OB/GYN PROGRESS NOTE ---
- Subjective Patient feeling better, pain is less, note calcium a little low, probably with interaction with Magnesium, will recheck today OB Physical Exam Vital Signs - 8 hr 07/27/19 02:00 07/27/19 04:11 Temperature 97.0 F L 98.2 F Pulse Rate 111 H 93 H Respiratory Rate 18 18 Blood Pressure 146/73 141/78 - CONSTITUTIONAL General Appearance: appears well, alert, no apparent distress - EYES Eyes: PERRL/EOMI - HEAD, EARS, NOSE, MOUTH & THROAT HENMT: normocephalic/atraumatic - NECK Neck: full range of motion - RESPIRATORY Respiratory: no respiratory distress - CARDIOVASCULAR Cardiovascular: regular rate, rhythm - CHEST (BREASTS) Chest/Breast: deferred - GASTROINTESTINAL (ABDOMEN) Abdominal Exam: non tender, soft, other (incision intact, clean, no erythema or induration) - GENITOURINARY Female Genitalia/Pelvic Exam: deferred - MUSCULOSKELETAL Extremity: normal range of motion - NEUROLOGIC Neurologic: grossly normal - PSYCHIATRIC Psych/Mental Status: normal mood/affect, oriented x 3 Active Medications Generic Name Dose Route Start Last Admin Trade Name Freq PRN Reason Stop Dose Admin Acetaminophen 650 mg 07/22/19 21:06 07/25/19 10:22 Tylenol PO 650 mg Q4-6H PRN PRN Administration Headache Albuterol Sulfate 1 puff 07/24/19 13:03 Ventolin Hfa INH Q6H PRN PRN Shortness Of Breath Bisacodyl 10 mg 07/24/19 12:58 Dulcolax [place] PRN PRN gas unrelieved by Mylicon Budesonide/Formoterol Fumarate 2 puff 07/24/19 19:30 07/27/19 01:14 Symbicort 80/4.5 Microgm Inhaler INH Not Given RTBID EUSEBIO Famotidine 20 mg 07/22/19 21:06 07/24/19 11:03 Pepcid PO 20 mg PRN PRN Administration For c/s Famotidine 20 mg 07/22/19 21:06 Pepcid PO Q12H PRN PRN GI upset or indigestion Guaifenesin 600 mg 07/22/19 22:30 07/26/19 20:25 Mucinex PO 600 mg Q12HR EUSEBIO Administration Hydroxyzine HCl 50 mg 07/24/19 12:58 Atarax PO Q3-4H PRN PRN Nausea Hydroxyzine HCl 50 mg 07/24/19 12:58 Hydroxyzine IM Q3-4H PRN PRN Nausea Ibuprofen 800 mg 07/26/19 00:00 07/27/19 01:24 Motrin PO Not Given Q8H EUSEBIO Meperidine HCl 50 mg 07/24/19 12:58 Demerol IM Q3H PRN PRN Pain Meperidine HCl 50 mg 07/24/19 12:58 Demerol PO Q4H PRN PRN Pain (1-6 on Pain Scale) Metoclopramide HCl 10 mg 07/22/19 21:06 07/24/19 11:03 Reglan PO 10 mg PRN PRN Administration For C/S Mineral Oil 30 ml 07/23/19 07:17 Mineral Oil TOP PRN PRN lubrication Nifedipine 60 mg 07/25/19 09:00 07/26/19 08:16 Adalat Cc PO 60 mg DAILY EUSEBIO Administration Oxycodone/Acetaminophen 1 each 07/24/19 12:58 07/26/19 00:01 Percocet-10 PO 1 each Q3-4H PRN PRN Administration Pain (7-10 on Pain Scale) Oxycodone/Acetaminophen 1 each 07/26/19 05:42 07/27/19 02:07 Percocet-5 PO 1 each Q4H PRN PRN Administration Pain Oxytocin 20 unit 07/24/19 12:58 Pitocin IM PRN PRN Severe bleeding Multivit/Folic Acid/Iron 1 each 07/25/19 09:00 07/26/19 08:16 Precare PO 1 each DAILY EUSEBIO Administration Promethazine HCl 25 mg 07/24/19 12:58 Phenergan IM Q3H PRN PRN Pain Senna/Docusate Sodium 1 each 07/24/19 21:00 07/26/19 20:25 Pericolace PO 1 each QHS EUSEBIO Administration Silver Sulfadiazine 0 gm 07/26/19 09:00 07/26/19 21:00 Ssd Cream TOP 1 applic BID EUSEBIO Administration Simethicone 80 mg 07/24/19 13:00 07/26/19 20:26 Mylicon PO 80 mg PC + HS EUSEBIO Administration Simethicone 80 mg 07/24/19 12:58 07/25/19 16:02 Mylicon PO 80 mg PRN PRN Administration GAS Terbutaline Sulfate 0.25 mg 07/22/19 21:06 Brethine SUBQ PRN PRN tachysystole/hypertonus Zolpidem Tartrate 10 mg 07/24/19 12:58 Ambien PO HS PRN PRN Sleep OB Assessment & Plan (1) Routine follow-up Status: Acute Plan: Patient doing well, a challenge, "getting there", will check calcium patient would like to go home tomorrow, all questions answered.
[2019-07-27] MEDS: PERCOCET-10 PO PRN (07:31)
[2019-07-27] MEDS: SSD CREAM TOP SCH ×2 (08:23→21:34)
[2019-07-27] MEDS: MYLICON PO SCH ×4 (08:24→21:34)
[2019-07-27] MEDS: MUCINEX PO SCH ×2 (08:24→21:34)
[2019-07-27] MEDS: PRECARE PO SCH (08:25)
[2019-07-27] MEDS: ADALAT CC PO SCH (08:25)
[2019-07-27] MEDS: PERICOLACE PO SCH (21:34)
[2019-07-28] MEDS: MOTRIN PO SCH ×2 (02:39→10:29)
[2019-07-28] MEDS: PERCOCET-10 PO PRN (05:34)
--- NOTE | 2019-07-28 07:34 | OB/GYN PROGRESS NOTE ---
- Subjective 39 yo POD#4 s/p 1LTCS with CHTN with CHRYSTAL with severe features, anemia, RH neg Patient seen and examined. Her pain is controlled with percocet/motrin. She notes minimal lochia. She is ambulating and voiding without difficulty. She is tolerating a regular diet. She denies nausea/vomiting. She denies any headaches, vision changes, chest pain, SOB, RUQ pain. She is s/p 24 hours of post- magnesium. BP 137-153/67-90. She is on Procardia 60mg QD. She received 2 uPRBCS on POD#1 2/2 acute blood loss anemia. She is . She is undecided on pp contraception. OB Physical Exam Vital Signs - 8 hr 07/28/19 02:45 Temperature 98.3 F Pulse Rate 98 H Respiratory Rate 18 Blood Pressure 153/90 O2 Sat by Pulse Oximetry 99 - CONSTITUTIONAL General Appearance: appears well, alert, no apparent distress - EYES Eyes: PERRL/EOMI - HEAD, EARS, NOSE, MOUTH & THROAT HENMT: normocephalic/atraumatic - RESPIRATORY Respiratory: lungs clear, normal breath sounds, no respiratory distress - CARDIOVASCULAR Cardiovascular: regular rate, rhythm - GASTROINTESTINAL (ABDOMEN) Abdominal Exam: normal bowel sounds, soft, other (ATTP, fundus firm/below umbilicus. Incision C/D/I with steri-strips) - MUSCULOSKELETAL Extremity: normal range of motion, non-tender, pedal edema DTR: knee (R): 2+, knee (L): 2+ - SKIN Integumentary: normal color - NEUROLOGIC Neurologic: grossly normal - PSYCHIATRIC Psych/Mental Status: normal mood/affect, normal thought content Active Medications Generic Name Dose Route Start Last Admin Trade Name Freq PRN Reason Stop Dose Admin Acetaminophen 650 mg 07/22/19 21:06 07/25/19 10:22 Tylenol PO 650 mg Q4-6H PRN PRN Administration Headache Albuterol Sulfate 1 puff 07/24/19 13:03 Ventolin Hfa INH Q6H PRN PRN Shortness Of Breath Bisacodyl 10 mg 07/24/19 12:58 Dulcolax [place] PRN PRN gas unrelieved by Mylicon Budesonide/Formoterol Fumarate 2 puff 07/24/19 19:30 07/27/19 21:34 Symbicort 80/4.5 Microgm Inhaler INH 2 puff RTBID EUSEBIO Administration Famotidine 20 mg 07/22/19 21:06 07/24/19 11:03 Pepcid PO 20 mg PRN PRN Administration For c/s Famotidine 20 mg 07/22/19 21:06 07/27/19 06:25 Pepcid PO 20 mg Q12H PRN PRN Administration GI upset or indigestion Guaifenesin 600 mg 07/22/19 22:30 07/27/19 21:34 Mucinex PO 600 mg Q12HR EUSEBIO Administration Hydroxyzine HCl 50 mg 07/24/19 12:58 Atarax PO Q3-4H PRN PRN Nausea Hydroxyzine HCl 50 mg 07/24/19 12:58 Hydroxyzine IM Q3-4H PRN PRN Nausea Ibuprofen 800 mg 07/26/19 00:00 07/28/19 02:39 Motrin PO 800 mg Q8H EUSEBIO Administration Meperidine HCl 50 mg 07/24/19 12:58 Demerol IM Q3H PRN PRN Pain Meperidine HCl 50 mg 07/24/19 12:58 Demerol PO Q4H PRN PRN Pain (1-6 on Pain Scale) Nifedipine 60 mg 07/25/19 09:00 07/27/19 08:25 Adalat Cc PO 60 mg DAILY EUSEBIO Administration Oxycodone/Acetaminophen 1 each 07/24/19 12:58 07/28/19 05:34 Percocet-10 PO 1 each Q3-4H PRN PRN Administration Pain (7-10 on Pain Scale) Oxycodone/Acetaminophen 1 each 07/26/19 05:42 07/27/19 22:39 Percocet-5 PO 1 each Q4H PRN PRN Administration Pain Multivit/Folic Acid/Iron 1 each 07/25/19 09:00 07/27/19 08:25 Precare PO 1 each DAILY EUSEBIO Administration Promethazine HCl 25 mg 07/24/19 12:58 Phenergan IM Q3H PRN PRN Pain Senna/Docusate Sodium 1 each 07/24/19 21:00 07/27/19 21:34 Pericolace PO 1 each QHS EUSEBIO Administration Silver Sulfadiazine 0 gm 07/26/19 09:00 07/27/19 21:34 Ssd Cream TOP 1 applic BID EUSEBIO Administration Simethicone 80 mg 07/24/19 13:00 07/27/19 21:34 Mylicon PO 80 mg PC + HS EUSEBIO Administration Simethicone 80 mg 07/24/19 12:58 07/25/19 16:02 Mylicon PO 80 mg PRN PRN Administration GAS Zolpidem Tartrate 10 mg 07/24/19 12:58 Ambien PO HS PRN PRN Sleep OB Assessment & Plan (1) delivery delivered Status: Acute Plan: 39 yo POD#4 s/p 1LTCS with CHTN with CHRYSTAL and severe features, acute blood loss anemia, Rh neg 1. Pain controlled, HD stable, afebrile 2. BP stable on Procardia 60mg QD. S/p 24 hours PP magnesium. 3. s/p 2 u PRBCs. 4. Routine PP care 5. D/C home today. Follow-up in 1 week for BP/incision check. 6. Not candidate for Rhogam (infant Rh neg)
[2019-07-28] MEDS: SYMBICORT 80/4.5 MICROGM INHALER INH SCH (08:14)
[2019-07-28] MEDS: ADALAT CC PO SCH (08:44)
[2019-07-28] MEDS: PRECARE PO SCH (08:44)
[2019-07-28] MEDS: MYLICON PO SCH (08:44)
[2019-07-28] MEDS: SSD CREAM TOP SCH (08:45)
[2019-07-28 09:04] VITALS: BP 154/70
[2019-07-28] MEDS: MUCINEX PO SCH (10:29)
[2019-07-28] MEDS: PERCOCET-5 PO PRN (11:10)
[2019-07-28] MEDS: PEPCID PO PRN (11:10)
== END 2019-07-28 12:20 | disposition home or self-care (01) | DRG 787 ==
LOC: LD 19:07
PROVIDERS: ADMIT Obstetrics & Gynecology; ATTEND Obstetrics & Gynecology